=== PATIENT | female | born 1955 | race Caucasian/White ===

== ENCOUNTER 2016-05-02 20:34 | Inpatient (IN) ==
[2016-05-02] MEDS ORDERED: NITROGLYCERIN 2% OINT 1 INCH/GM PACK TOP STA (21:11)
[2016-05-02 21:19] LABS: Basophils # 0.1 10*3/uL (0.0-0.2); Basophils % 0.7 % (0.0-0.8); Eosinophils # 0.1 10*3/uL (0.0-0.87); Eosinophils % 1.7 % (0.00-10.9); Hematocrit 39.1 VOL% (35.7-47.0); Hemoglobin 12.9 GM/DL (12.0-16.0); Immature Granulocytes % 0.8 %; Immature Granulocytes Absolute 0.06 #; Lymphocytes # 2.1 10*3/uL (1.4-4.0); Lymphocytes % 28.4 % (21.3-54.2); Mean Corpuscular Hemoglobin 31 PG (27-34); Mean Corpuscular Volume 92.4 FL (87-102); Mean Platelet Volume 9.9 FL (9.6-12.0); Monocytes # 0.5 10*3/uL (0.11-0.8); Monocytes % 7.5 % (1.7-12.7); Neutrophils # 4.4 10*3/uL (1.4-7.4); Neutrophils % 60.9 % (38.7-73.9); Platelet Count 157 10*3/uL (130-400); Red Blood Count 4.23 10*6/uL (3.8-5.5); Red Cell Distribution Width 12.7 % (9.3-17.3); White Blood Count 7.2 10*3/uL (4.5-13.71)
--- NOTE | 2016-05-02 21:25 | Emergency Department Note ---
ISami Sierra, am scribing for, and in the presence of, Kit Deluca MD 21:19. Yosi Mcallister Charles R, MD, personally performed the services described in this documentation, ascribed by Tere Gallardo in my presence, and it is both accurate and complete . Arrival - Arrival Chief Complaint: Chest Pain Stated Complaint: chest pain ED Nursing Triage Note: pt arrives from [facility] for further eval r/t chest pain, pt was outside working in yard at 1400, suddenly experienced cp dull ache to her mid sternal area, she states radiated to her right shoulder and she says was sob also. she denies n/v or pain elsewhere and says she is currently pain free. 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 pt see's dr whitney as sound designer. 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 She states she was "reaching into a tub to get pictures" when chest pain hit her that radiated to left shoulder. Pt reports chest pain was sharp and same as previous [facility]. No other complaints/pain in ED. Pt has a PMHx of HTN, [place], IDDM, Dyslipidemia, and Diverticulitis. Pt also has a surgical history of cardiac cath (stents x3 in 2013.) Onset (ago): hour(s) Consistency: constant Review of System - Review of System 12 point system: reviewed and no additional remarkable complaints except as stated - Review of System Constitutional: Absent: chills, fever Cardiovascular: Present: chest pain Gastrointestinal: Absent: abdominal pain, nausea, vomiting, diarrhea Musculoskeletal: Present: arm pain (left shoulder radiated from chest pain). Absent: back pain, leg pain, neck pain Skin: Absent: rash Neurological: Absent: headache Psychiatric: Absent: anxiety Medical,Surgical,& Family Hx - Medical History Cardio: History of: Hypertension, [place] Endocrine: History of: Diabetes Mellitus (IDDM), Dyslipidemia Gastrointestinal: History of: Diverticulitis/ Diverticulosis, GI Problems ( cirrhosis) - Surgical History Cardiac Surgeries: Sugical HX of: Cardiac Surgery (stent x 3) - Social History Smoking Status: Never smoker Frequency of Alcohol Use: None Type of Drug Use: None Exam Vital Signs: Vital Signs Temperature 98.9 F 05/02/16 20:43 Pulse Rate 60 05/02/16 20:43 Respiratory Rate 18 05/02/16 20:43 Blood Pressure 156/74 05/02/16 20:43 O2 Sat by Pulse Oximetry 97 05/02/16 20:43 - General General appearance: alert, in no apparent distress - Head Head exam: Present: atraumatic, normocephalic - Eye Eye exam: Present: PERRL, EOMI - ENT ENT exam: Present: mucous membranes moist. Absent: mucous membranes dry - Neck Neck exam: Present: full ROM. Absent: tenderness - Chest Chest inspection: Present: symmetric chest wall rise. Absent: tenderness - Respiratory Respiratory exam: Present: normal lung sounds bilaterally. Absent: respiratory distress - Cardiovascular Cardiovascular exam: Present: regular rate, normal rhythm, normal heart sounds - Abdominal Exam Abdominal exam: Present: soft. Absent: tenderness - Extremities Exam Extremities exam: Present: full ROM, pedal edema (+1 to lower extremity). Absent: tenderness - Back Exam Back exam: Present: full ROM. Absent: tenderness - Neurological Exam Neurological exam: Present: alert, oriented X3, CN II-XII intact. Absent: motor sensory deficit - Psychiatric Psychiatric exam: Present: normal affect, normal mood - Skin Skin exam: Present: warm, dry Course - Consultations Consultation #1: Dr. Raman will admit for Dr. Zheng Time: 21:10 Results - Labs CBC & BMP: 05/02/16 20:42 Lab Results: I have reviewed the patients labs Labs: All labs from previous facility reviewed Disposition Clinical Impression: Chest pain Case discussed with: patient Disposition: Still a Patient Condition: Stable Time of Disposition: 21:25
[2016-05-02 21:44] LABS: Albumin 3.8 G/DL (3.4-5.0); Bilirubin,Total 0.6 MG/DL (0.2-1.0); Calcium 9.3 MG/DL (8.5-10.1); Magnesium 2.1 MG/DL (1.8-2.4); Osmolality,Calculated 295.6 MOS/KG (273-304); Total Protein 7.5 G/DL (6.4-8.3)
[2016-05-02] MEDS ORDERED: POTASSIUM CHLORIDE 20 MEQ TABLET PO PRN (22:15)
[2016-05-02] MEDS ORDERED: MAGNESIUM SULF RIDER 4 GM in PREMIX 1 EACH IV PRN (22:15)
[2016-05-02] MEDS ORDERED: MAGNESIUM SULF RIDER 2 GM in PREMIX 1 EACH IV PRN (22:15)
[2016-05-02] MEDS ORDERED: MORPHINE 2 MG/1 ML SYRINGE IV PRN (22:15)
[2016-05-02] MEDS ORDERED: ONDANSETRON 4 MG/2 ML VIAL IV PRN (22:15)
[2016-05-02] MEDS ORDERED: GLUCAGON 1 MG VIAL IM PRN (22:15)
[2016-05-02] MEDS ORDERED: DEXTROSE 50% 25 GM/50 ML VIAL IV PRN (22:15)
[2016-05-02] MEDS: SODIUM CHLORIDE 0.9% 1,000 ML IV SCH (23:21)
[2016-05-02] MEDS: ENOXAPARIN 100 MG/ML SYRINGE SUBCUT SCH (23:24)
[2016-05-03] MEDS: NITROGLYCERIN 2% OINT 1 INCH/GM PACK TOP SCH ×4 (00:03→17:09)
[2016-05-03 01:04] LABS: Basophils # 0.1 10*3/uL (0.0-0.2); Basophils % 0.9 % (0.0-0.8); Eosinophils # 0.1 10*3/uL (0.0-0.87); Eosinophils % 1.6 % (0.00-10.9); Hematocrit 35.4 VOL% (35.7-47.0); Hemoglobin 11.6 GM/DL (12.0-16.0); Immature Granulocytes % 0.7 %; Immature Granulocytes Absolute 0.04 #; Lymphocytes # 1.8 10*3/uL (1.4-4.0); Lymphocytes % 32.1 % (21.3-54.2); Mean Corpuscular HGB Conc 32.8 GM/DL (32-36); Mean Corpuscular Hemoglobin 30 PG (27-34); Mean Corpuscular Volume 92.2 FL (87-102); Monocytes # 0.5 10*3/uL (0.11-0.8); Monocytes % 8.3 % (1.7-12.7); Neutrophils # 3.1 10*3/uL (1.4-7.4); Neutrophils % 56.4 % (38.7-73.9); Platelet Count 159 10*3/uL (130-400); Red Blood Count 3.84 10*6/uL (3.8-5.5); Red Cell Distribution Width 12.6 % (9.3-17.3); White Blood Count 5.6 10*3/uL (4.5-13.71)
[2016-05-03 01:53] LABS: Albumin 3.4 G/DL (3.4-5.0); Bilirubin,Total 0.6 MG/DL (0.2-1.0); Magnesium 2.1 MG/DL (1.8-2.4); Osmolality,Calculated 297.4 MOS/KG (273-304); Potassium 4.4 MMOL/L (3.5-5.1); Total Protein 6.2 G/DL (6.4-8.3)
[2016-05-03 01:54] LABS: Risk Ratio 3.77; Thyroid Stimulating Hormone 0.796 uIU/ml (0.358-3.74); VLDL CHOLESTEROL 33.6 MG/DL
--- NOTE | 2016-05-03 06:42 | EKG Report ---
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
[2016-05-03] MEDS: INSULIN REGULAR 100 UNIT/ML SUBCUT SCH ×4 (08:45→22:03)
[2016-05-03] MEDS ORDERED: ASPIRIN EC 325 MG TABLET PO SCH (09:00)
--- NOTE | 2016-05-03 09:08 | XRay Report ---
Exam: XR chest 1V portable Indication: Shortness of breath, cardiomegaly Comparison study: 05/02/16 Findings: Cardiac silhouette is mildly enlarged, similar to prior. Mediastinal contours and osseous structures appear stable from prior. There is no focal consolidation, pneumothorax or pleural effusion identified. Calcific density adjacent to the right proximal humerus greater tuberosity likely represents calcific tendinopathy changes. Impression: No acute cardiopulmonary process. No significant change from prior. Borderline cardiomegaly. PROCEDURE INTERPRETED AT [facility] DEPARTMENT OF RADIOLOGY Final Report Signed by: Dutch Weston
[2016-05-03] MEDS: PANTOPRAZOLE 40 MG TABLET PO SCH (09:43)
--- NOTE | 2016-05-03 12:46 | Cardiology History & Physical ---
I, Jackelyn Church RN, am scribing for, and in the presence of, London Mandujano MD 12:38. Assessment and Plan - Time spent with patient Time spent with patient: Greater than 30 minutes (1) Chest pain Status: Acute Assessment and plan: Symptoms typical for angina with some atypical features. She has a history of stent placement, previously patent 2 years ago at time of last left heart catheterization. She has been on Ranexa since September 2015 and ran out of medication on Sunday. ECG shows sinus rhythm/sinus bradycardia with rates in the 50's-60's. Creatinine is up to 1.4 and troponin has risen to 0.052. Cardiac enzymes and ECG did not reveal acute ischemic event. Certainly her pain may be secondary to small vessel disease or Prinzmetal's angina that exacerbated off the Ranexa. She needs to be restarted on this. Current Visit: Yes (2) Heart murmur, systolic Status: Acute Assessment and plan: This is not previously been noted. We'll do echocardiogram to evaluate this. Current Visit: Yes (3) Dyspnea on exertion Status: Chronic Assessment and plan: Multifactorial. She is not very active and has obstructive sleep apnea, she tells me she is compliant with CPAP nightly. At time of cath April 2014, ejection fraction was 60%. I do hear a soft murmur upon exam. We will obtain an echocardiogram for further evaluation. This is a long-term chronic issue. Current Visit: Yes (4) Coronary artery disease Problem details: 08/11- mRCA overlapping 3.0 x 23mm & 3.5 x 18mm Xience Expedition stents and pLCx 3.2 x 12 mm Xience Expedition stent at [facility] Status: Chronic Assessment and plan: Prior coronary stenting with patent stents 2 years ago. Current Visit: Yes (5) Status post coronary artery stent placement Problem details: 08/11- mRCA overlapping 3.0 x 23mm & 3.5 x 18mm Xience Expedition stents and pLCx 3.2 x 12 mm Xience Expedition stent at [facility] Status: Chronic Assessment and plan: Prior stents placed over 2 years ago were patent. Current Visit: Yes (6) Hypertension Status: Chronic Assessment and plan: Currently well controlled. Will continue home medications and adjust as needed. Current Visit: Yes (7) Diabetes mellitus Status: Chronic Assessment and plan: Fairly well controlled. Will continue home diabetic medications and if needed, place on sliding scale insulin therapy. Current Visit: Yes (8) History of atrial fibrillation Status: Chronic Assessment and plan: Currently in sinus rhythm, on no antiarrhythmic or jovita blocking agent. She is on Aspirin 81 mg daily and has been anticoagulated with full dose Lovenox this hospitalization. Will monitor. This overall has not been an issue. Certainly clinically is been asymptomatic. Current Visit: Yes (9) Obstructive sleep apnea Status: Chronic Assessment and plan: On CPAP nightly with reported compliance per patient. Current Visit: Yes (10) FITCH (nonalcoholic steatohepatitis) Status: Chronic Current Visit: Yes (11) Obesity (BMI 30-39.9) Status: Chronic Assessment and plan: Needs to lose weight but she is not motivated to do such. Current Visit: Yes (12) Arthritis Status: Chronic Assessment and plan: This is a chronic issue exacerbated by obesity. Current Visit: Yes (13) Fatigue Status: Acute Assessment and plan: This a chronic issue over 2 years in duration. This is associated with addition exertion as well. Current Visit: Yes History of Present Illness Chief complaint: chest pain History of present illness: The patient personally interviewed and examined by me and chart reviewed. Ms. Velez is a 60 year old female who is routinely followed by Dr. Eric. She has a history of atrial fibrillation, bradycardia, cirrhosis - FITCH , diabetes mellitus, hypertension, obesity, obstructive sleep apnea, arthritis, and coronary artery disease status post mid right coronary artery overlapping stents and stent to the proximal left circumflex at [facility] in July of 2013. She has risk factors significant for hypertension, personal history, sedentary lifestyle, obesity. She was transferred to our emergency department last night from [facility] for further evaluation of chest pain. Yesterday, around 2:00 PM, she was bending over to pick something up when she had a sharp pain in her left breast. Once she stood up, this was accompanied by a midsternal chest pressure with radiation of discomfort to the right shoulder. She had associated symptoms of mild shortness of breath and nausea. She denies palpitations, lightheadedness, dizziness, syncope, or diaphoresis. She reports this incident lasted approximately 10 minutes. She continued to have chest discomfort and presented to the [facility] ED for evaluation. At [facility], she was given Aspirin, Lovenox, and nitroglycerin topically. She reports she finally has relief of pain this morning. She tells me that she ran out of her Ranexa on Sunday and her delivery of this medication has not arrived yet. Prior to yesterday, she denies any chest discomfort or pain at rest or on exertion. Her family tells me that she isn't able to do very much but when she does perform activities around the house, she has to take frequent rest breaks due to shortness of breath. She also reports having bilateral lower extremity leg edema on a regular basis. She had left heart catheterization 05/15/14 which revealed 40% in stent restenosis of the left circumflex and an ejection fraction of 60% with other stents widely patent. At time of cath, there was mild plaquing of the mid left anterior descending artery of 30-40% and the left main was angiographically normal. She had stress testing 05/03/15 with a clinically positive, electrically negative subtarget test. She has been in sinus rhythm per ECG and athletic agent. There is no acute changes in her ECG. Her creatinine is mildly elevated at 1.4 and her troponin has risen to 0.052 since last night. I do hear a soft murmur upon exam. We will obtain an echocardiogram to further evaluate. It is interesting that she is on Ranexa for about a year for chest pain after having an unremarkable cardiac catheterization April 2014. This raises the issue whether this may be small vessel disease. She is doing well from an angina standpoint until she ran out of her Ranexa. The other issue is that she has chronic fatigue but this is been going on for over 2 years without change. Her troponins are flat in trivially increased. Home Medications Medication Instructions Recorded Confirmed Type Aspirin [Ecotrin] 81 mg PO DAILY 05/02/16 05/02/16 History Atorvastatin [Lipitor] 40 mg PO BEDTIME 05/02/16 05/02/16 History Febuxostat [Uloric] 40 mg PO DAILY 05/02/16 05/02/16 History Indomethacin Cap [Indocin Cap] 50 mg PO TID PRN 05/02/16 05/02/16 History Insulin Glargine,Hum.rec.anlog 35 unit SUBCUT BEDTIME 05/02/16 05/02/16 History [Winston Haider] Insulin Lispro [HumaLOG] 20 unit SUBCUT BID 05/02/16 05/02/16 History Lisinopril 10 mg PO DAILY 05/02/16 05/02/16 History NIFEdipine XL TAB [Procardia Xl] 60 mg PO DAILY 05/02/16 05/02/16 History Pantoprazole Tab [Protonix Tab] 40 mg PO DAILY 05/02/16 05/02/16 History Ranolazine [Ranexa] 1,000 mg PO BID 05/02/16 05/02/16 History hydroCHLOROthiazide 50 mg PO DAILY 05/02/16 05/02/16 History [Hydrochlorothiazide] Allergies Allergy/AdvReac Type Severity Reaction Status Date / Time latex AdvReac Intermediate RASH Verified 05/02/16 22:14 12 point system: reviewed and no additional remarkable complaints except as stated - Constitutional Constitutional: Present: fatigue. Absent: anorexia, chills, daytime sleepiness , excessive sweating, fever(s), frequent falls, headache(s), increased appetite , lethargy, malaise, night sweats, stops breathing during sleep (wears CPAP at night), weakness, weight gain, weight loss - EENT Eyes: Absent: blurry vision, diplopia, loss of vision Ears: Absent: decreased hearing, ear discharge, ear pain Nose, mouth and throat: Present: nasal congestion (has had recent cold). Absent: dysphagia, epistaxis, headache(s), hoarseness, lip swelling, neck mass, neck pain, sinus pressure, sore throat, throat swelling, tongue swelling, vertigo - Cardiovascular Cardiovascular: Present: as per HPI, chest pain at rest, chest pain with activity, dyspnea on exertion, edema, radiating jaw, neck or arm pain. Absent: claudication, diaphoresis, dyspnea, lightheadedness, orthopnea, palpitations, PND - Respiratory Respiratory: Present: as per HPI, cough (has had recent cold), dyspnea on exertion. Absent: dyspnea, hemoptysis, wheezing, snoring, pain on inspiration - Gastrointestinal Gastrointestinal: Present: heartburn (occasional ). Absent: abdominal pain, bloating, change in bowel habits, coffee ground emesis, constipation, cramping, diarrhea, dysphagia, early satiety, hematemesis, hematochezia, loose stools, melena, nausea, vomiting - Genitourinary Genitourinary: Absent: difficulty urinating, dysuria, flank pain, urinary frequency, urinary hesitancy, urinary incontinence - Musculoskeletal Musculoskeletal: Absent: arthralgias, back pain, joint swelling, limited range of motion, muscle cramps, muscle weakness, myalgias - Neurological Neurological: Absent: abnormal gait, abnormal speech, behavioral changes, confusion, convulsions, disequilibrium, dizziness, focal weakness, frequent falls, headache(s), memory loss, numbness, paresthesias, radicular pain, syncope , tremor(s) - Psychiatric Psychiatric: Absent: anxiety, confusion, depression, difficulty concentrating, memory loss, panic attacks - Endocrine Endocrine: Absent: cold intolerance, fatigue, heat intolerance, polydipsia, polyphagia - Hematologic/Lymphatic Hematologic/Lymphatic: Absent: easy bleeding, easy bruising, lymphadenopathy Medical,Surgical,& Family Hx - Medical History Cardio: History of: Hypertension, [place] Endocrine: History of: Diabetes Mellitus (IDDM), Dyslipidemia Respiratory: History of: Obstructive Sleep Apnea Gastrointestinal: History of: Diverticulitis/ Diverticulosis, GI Problems ( cirrhosis) - Surgical History Cardiac Surgeries: Sugical HX of: Cardiac Surgery (stent x 3) Reproductive Surgeries: Surgical HX of;: Hysterectomy Orthopedic Surgeries: Surgical HX of;: Orthopedic Surgery (Left ankle and cartilage surgery in right knee) - Social History Smoking Status: Never smoker Frequency of Alcohol Use: None Type of Drug Use: None Cardiology Physical Exam - Constitutional Vitals: Vital Signs Temp Pulse Resp BP Pulse Ox 98.4 F 57 L 20 132/81 97 05/03/16 07:49 05/03/16 07:49 05/03/16 07:49 05/03/16 07:49 05/03/16 07:49 Intake and Output 05/02/16 05/03/16 05/03/16 22:59 06:59 14:59 Output Total 900 / 900 Balance -900 / -900 Output: Urine 900 / 900 Other: Voiding Method Toilet Weight 225 lb 12 oz 224 lb 8 oz General appearance: no acute distress, morbidly obese - Head Head exam: Present: normal inspection, normocephalic - Eye Eye exam: Absent: conjunctival injection, periorbital swelling, scleral icterus Pupils: Present: RITIKA. Absent: irregular - ENT ENT exam: Present: normal exam, normal external ear exam - Neck Neck exam: Present: normal inspection. Absent: tenderness - Respiratory Respiratory exam: Present: clear to auscultation bilaterally, decreased breath sounds. Absent: accessory muscle use, chest wall tenderness - Cardiovascular Cardiovascular exam: Present: regular rate and rhythm, systolic murmur, other ( pulses are 2+ and equal.). Absent: irregular rhythm - GI/Abdominal GI/Abdominal exam: Present: normal bowel sounds, soft. Absent: distended, mass , tenderness - Extremities Exam Extremities exam: Present: normal inspection, full ROM, edema (trace), other (2 + DP and PT pulses bilaterally). Absent: calf tenderness - Back Exam Back exam: Present: normal inspection. Absent: vertebral tenderness - Neurological Exam Neurological exam: Present: alert, oriented X3, other (grossly intact, no resting or essential tremor) - Psychiatric Psychiatric exam: Present: normal affect, normal mood - Skin Skin exam: Present: normal color, warm, dry, intact Result/EKG - Labs CBC & BMP: 05/03/16 00:34 05/03/16 00:34 Lab Results: I have reviewed the past 24 hour labs Labs: Laboratory Results - last 24 hr 05/02/16 05/03/16 05/03/16 23:54 00:34 00:34 WBC 5.6 RBC 3.84 Hgb 11.6 L Hct 35.4 L MCV 92.2 MCH 30 MCHC 32.8 RDW 12.6 Plt Count 159 MPV 10.0 Neut % (Auto) 56.4 Lymph % (Auto) 32.1 [place] % (Auto) 8.3 Eos % (Auto) 1.6 Baso % (Auto) 0.9 H Neut # (Auto) 3.1 Lymph # (Auto) 1.8 [place] # (Auto) 0.5 Eos # (Auto) 0.1 Baso # (Auto) 0.1 Immature Gran % 0.7 Nucleated RBC % 0.0 Immature Gran # 0.04 Nucleated RBCs # 0.00 Sodium Potassium Chloride Carbon Dioxide Anion Gap BUN Creatinine GFR Calculation BUN/Creatinine Ratio Glucose POC Glucose 112 H Calculated Osmolality Calcium Magnesium Total Bilirubin AST ALT Alkaline Phosphatase Troponin I 0.051 H B-Natriuretic Peptide Total Protein Albumin Globulin Albumin/Globulin Ratio Triglycerides Cholesterol LDL Cholesterol VLDL Cholesterol HDL Cholesterol Heart Disease Risk Ratio TSH 3rd Generation 05/03/16 05/03/16 05/03/16 00:34 00:34 05:02 WBC RBC Hgb Hct MCV MCH MCHC RDW Plt Count MPV Neut % (Auto) Lymph % (Auto) [place] % (Auto) Eos % (Auto) Baso % (Auto) Neut # (Auto) Lymph # (Auto) [place] # (Auto) Eos # (Auto) Baso # (Auto) Immature Gran % Nucleated RBC % Immature Gran # Nucleated RBCs # Sodium 147 H Potassium 4.4 Chloride 109 H Carbon Dioxide 27 Anion Gap 15.4 H BUN 29 H Creatinine 1.40 H GFR Calculation 48 BUN/Creatinine Ratio 20.00 Glucose 91 POC Glucose Calculated Osmolality 297.4 Calcium 9.0 Magnesium 2.1 Total Bilirubin 0.60 AST 25 ALT 27 Alkaline Phosphatase 80 Troponin I 0.052 H B-Natriuretic Peptide 31 Total Protein 6.2 L Albumin 3.4 Globulin 2.8 Albumin/Globulin Ratio 1.2 Triglycerides 168 H Cholesterol 132 LDL Cholesterol 73.0 VLDL Cholesterol 33.6 HDL Cholesterol 35 L Heart Disease Risk Ratio 3.77 TSH 3rd Generation 0.796 05/03/16 05/03/16 05:59 07:11 WBC RBC Hgb Hct MCV MCH MCHC RDW Plt Count MPV Neut % (Auto) Lymph % (Auto) [place] % (Auto) Eos % (Auto) Baso % (Auto) Neut # (Auto) Lymph # (Auto) [place] # (Auto) Eos # (Auto) Baso # (Auto) Immature Gran % Nucleated RBC % Immature Gran # Nucleated RBCs # Sodium Potassium Chloride Carbon Dioxide Anion Gap BUN Creatinine GFR Calculation BUN/Creatinine Ratio Glucose POC Glucose 101 104 Calculated Osmolality Calcium Magnesium Total Bilirubin AST ALT Alkaline Phosphatase Troponin I B-Natriuretic Peptide Total Protein Albumin Globulin Albumin/Globulin Ratio Triglycerides Cholesterol LDL Cholesterol VLDL Cholesterol HDL Cholesterol Heart Disease Risk Ratio TSH 3rd Generation - Impressions Impressions: ECG with sinus bradycardia without any acute changes. - EKG EKG results: interpreted by me, sinus rhythm (mild bradycardia with rates in the 50's) Quality Measures - Stroke Onset of Symptoms Date: 05/02/16 Onset of Symptoms Time: 14:00 IDelbert John Timothy, MD, personally performed the services described in this documentation, ascribed by Jackelyn Church RN in my presence, and it is both accurate and complete 245 .
[2016-05-03] MEDS: SODIUM CHLORIDE 0.9% 1,000 ML IV SCH (14:46)
[2016-05-03] MEDS ORDERED: INDOMETHACIN 50 MG CAPSULE PO PRN (17:22)
--- NOTE | 2016-05-03 17:55 | ECHO Report ---
Lynnette Velez Exam Date: 05/03/2016 14:12 Referring Physician: Technologist: Ashlyn Quintero RDCS Age: 60 Ht (in): Wt (lb): Gender: F Exam Location: [facility] Echo Indications: Chest pain, unspecified, Essential (primary) hypertension, Shortness of breath, Atrial fibrillation, Other fatigue, Diabetes, CAD with previous stents, JENNIFER, Cardiac murmur, unspecified BP: / HR: Rhythm: Technical Quality: IMPRESSIONS Left ventricular ejection fraction is estimated at 60 %. Grade I/IV diastolic dysfunction (abnormal relaxation filling pattern), normal to mildly elevated filling pressures. The right ventricle is normal in size and function. The right atrium is mildly enlarged. The left atrium is mildly enlarged. Thickened mitral valve. Trace mitral valve regurgitation. Aortic valve sclerosis. No aortic valve regurgitation. Moderate tricuspid valve regurgitation. PAP50 mmHG. Pulmonic valve not well visualized. Normal pericardium without effusion. Normal ascending aorta dimension. MEASUREMENTS (Male / Female) Normal Values 2D ECHO LV Diastolic Diameter PLAX 4.6 cm 4.2 - 5.9 / 3.9 - 5.3 cm LV Systolic Diameter PLAX 2.6 cm LV Fractional Shortening PLAX 43.0 % IVS Diastolic Thickness 0.9 cm 0.6 - 1.0 / 0.6 - 0.9 cm LVPW Diastolic Thickness 0.9 cm 0.6 - 1.0 / 0.6 - 0.9 cm RV Internal Dim ED PLAX 3.3 cm Aortic Root Diameter 3.4 cm LA Systolic Diameter LX 4.1 cm 3.0 - 4.0 / 2.7 - 3.8 cm DOPPLER TR Peak Velocity 300.0 cm/s TR Peak Gradient 36.0 mmHg FINDINGS Left Ventricle Left ventricular ejection fraction is estimated at 60 %.Grade I/IV diastolic dysfunction (abnormal relaxation filling pattern), normal to mildly elevated filling pressures. Right Ventricle The right ventricle is normal in size and function. Right Atrium The right atrium is mildly enlarged. Left Atrium The left atrium is mildly enlarged. Mitral Valve Thickened mitral valve. Trace mitral valve regurgitation. Aortic Valve Aortic valve sclerosis. No aortic valve regurgitation. Tricuspid Valve Morphologically normal tricuspid valve. Moderate tricuspid valve regurgitation. PAP50 mmHG. Pulmonic Valve Pulmonic valve not well visualized. Pericardium Normal pericardium without effusion. Aorta Normal ascending aorta dimension. Toño Raman (Electronically Signed) Final Date: 03 May 2016 17:54
[2016-05-03] MEDS: RANOLAZINE 500 MG TABLET PO SCH (21:01)
[2016-05-03] MEDS: ENOXAPARIN 100 MG/ML SYRINGE SUBCUT SCH (21:01)
[2016-05-03] MEDS: ATORVASTATIN 40 MG TABLET PO SCH (21:01)
[2016-05-03] MEDS: INSULIN GLARGINE 100 UNIT/ML SUBCUT SCH (21:01)
[2016-05-03] MEDS: INSULIN LISPRO 100 UNIT/ML SUBCUT SCH (22:03)
[2016-05-04] MEDS: NITROGLYCERIN 2% OINT 1 INCH/GM PACK TOP SCH ×5 (01:27→23:42)
[2016-05-04] MEDS: SODIUM CHLORIDE 0.9% 1,000 ML IV SCH ×2 (03:51→14:24)
[2016-05-04] MEDS ORDERED: PANTOPRAZOLE 40 MG TABLET PO SCH (09:00)
[2016-05-04] MEDS: INSULIN LISPRO 100 UNIT/ML SUBCUT SCH ×2 (09:27→21:12)
[2016-05-04] MEDS: hydroCHLOROthiazide 25 MG TABLET PO SCH (09:28)
[2016-05-04] MEDS: FEBUXOSTAT 80 MG TABLET PO SCH (09:28)
[2016-05-04] MEDS: ASPIRIN EC 81 MG TABLET PO SCH (09:28)
[2016-05-04] MEDS: PANTOPRAZOLE 40 MG TABLET PO SCH (09:28)
[2016-05-04] MEDS: LISINOPRIL 10 MG TABLET PO SCH (09:29)
[2016-05-04] MEDS: INSULIN REGULAR 100 UNIT/ML SUBCUT SCH ×4 (09:29→21:12)
[2016-05-04] MEDS: RANOLAZINE 500 MG TABLET PO SCH ×2 (09:29→21:11)
--- NOTE | 2016-05-04 16:58 | Cardiology Progress Note ---
Assessment and Plan (1) Chest pain Status: Acute Assessment and plan: She is had no symptoms since starting her on Ranexa. She is not though been ambulating in the hallway and not been out of bed by its moderate amount. The Rivera guide bit walking the hallways and she feels. She does well she probably discharged tomorrow but may have passed some samples to bridge her to her mail order arrives. Current Visit: Yes (2) Heart murmur, systolic Status: Acute Assessment and plan: This is not previously been noted. Echo revealed thickened mitral valve is trace regurgitation and sclerotic aortic valve but functionally otherwise normal. There is moderate tricuspid regurgitation. This may be the source of murmur. Current Visit: Yes (3) Dyspnea on exertion Status: Chronic Assessment and plan: Multifactorial. It is certainly chronic. Nothing on echocardiogram really significant enough to indicated etiology of this. Current Visit: Yes (4) Coronary artery disease Problem details: 08/11- mRCA overlapping 3.0 x 23mm & 3.5 x 18mm Xience Expedition stents and pLCx 3.2 x 12 mm Xience Expedition stent at [facility] Status: Chronic Assessment and plan: Prior coronary stenting with patent stents 2 years ago. Current Visit: Yes (5) Status post coronary artery stent placement Problem details: 08/11- mRCA overlapping 3.0 x 23mm & 3.5 x 18mm Xience Expedition stents and pLCx 3.2 x 12 mm Xience Expedition stent at [facility] Status: Chronic Assessment and plan: Prior stents placed over 2 years ago were patent. Current Visit: Yes (6) Hypertension Status: Chronic Assessment and plan: Currently well controlled. Will continue home medications and adjust as needed. Blood pressure been up and down. Current Visit: Yes (7) Diabetes mellitus Status: Chronic Assessment and plan: Fairly well controlled. Will continue home diabetic medications and if needed, place on sliding scale insulin therapy. Current Visit: Yes (8) History of atrial fibrillation Status: Chronic Assessment and plan: Currently in sinus rhythm, on no antiarrhythmic or jovita blocking agent. Current Visit: Yes (9) Obstructive sleep apnea Status: Chronic Assessment and plan: On CPAP nightly with reported compliance per patient. Current Visit: Yes (10) FITCH (nonalcoholic steatohepatitis) Status: Chronic Current Visit: Yes (11) Obesity (BMI 30-39.9) Status: Chronic Assessment and plan: Needs to lose weight but she is not motivated to do such. Current Visit: Yes (12) Arthritis Status: Chronic Assessment and plan: This is a chronic issue exacerbated by obesity. Current Visit: Yes (13) Fatigue Status: Acute Assessment and plan: This a chronic issue over 2 years in duration. This is associated with addition exertion as well. Current Visit: Yes Cardiology - PN: Subj Interval history: Ms. Velez's accident pretty well now she is on the Ranexa. She's not having any specific complaints today. She's been up in the room but not been walking the mc. She denies any dyspnea or dyspnea on exertion of the shortness of breath. She has no new complaints today. We discussed the issue with her Ranexa and she may had to be discharged with some samples to bridge until her mail order Ranexa comes back. Her echocardiogram revealed ejection fraction 60%. Mild diastolic dysfunction. Mild to moderately elevated right-sided pressures. Moderate tricuspid regurgitation. Exam (Progress Note) - Constitutional Vitals: Period Temp Pulse Resp BP Sys/Thacker Pulse Ox Last 24 Hr 96.9 F-99.3 F 46-53 18-20 101-183/58-77 93-98 Exam: General appearance: Obese, no acute distress HEENT exam: normal inspection, atraumatic Neck exam: normal inspection no JVD. No carotid bruit. Trachea is in midline Respiratory/lungs exam: clear to auscultation bilaterally good air movement. Cardiovascular exam: regular rate and rhythm, 1 to 2/6 systolic murmur but no gallop or rub. No precordial lift. Chest wall exam: nontender GI/Abdominal exam: normal bowel sounds, soft, nontender, no abdominal bruits or pulsatile masses. Extremeties/musculoskeletal: normal inspection without edema or cyanosis. Neurological exam: alert, oriented X3, no focal deficits Psychiatric exam: normal affect, normal mood. Cognitive function is grossly normal. Skin exam: normal color, warm Result/EKG - Labs CBC & BMP: 05/03/16 00:34 05/03/16 00:34 Labs: Laboratory Results - last 24 hr 05/03/16 05/04/16 05/04/16 21:00 07:02 11:27 POC Glucose 153 H 99 155 H 05/04/16 15:50 POC Glucose 122 H - Impressions Impressions: Telemetry was sinus rhythm. No dysrhythmias noted. Quality Measures - Stroke Onset of Symptoms Date: 05/02/16 Onset of Symptoms Time: 14:00 Specialty Discharge - Follow Up or Referrals - Discharge Medications No Action Febuxostat [Uloric] 40 mg PO DAILY Insulin Glargine,Hum.rec.anlog [Winston Haider] 35 unit SUBCUT BEDTIME Lisinopril 10 mg PO DAILY Pantoprazole Tab [Protonix Tab] 40 mg PO DAILY Atorvastatin [Lipitor] 40 mg PO BEDTIME hydroCHLOROthiazide [Hydrochlorothiazide] 50 mg PO DAILY Ranolazine [Ranexa] 1,000 mg PO BID Aspirin [Ecotrin] 81 mg PO DAILY Indomethacin Cap [Indocin Cap] 50 mg PO TID PRN PRN Reason: Pain NIFEdipine XL TAB [Procardia Xl] 60 mg PO DAILY Insulin Lispro [HumaLOG] 20 unit SUBCUT BID
[2016-05-04] MEDS: ATORVASTATIN 40 MG TABLET PO SCH (21:11)
[2016-05-04] MEDS: INSULIN GLARGINE 100 UNIT/ML SUBCUT SCH (21:12)
[2016-05-04] MEDS: ENOXAPARIN 100 MG/ML SYRINGE SUBCUT SCH (21:12)
[2016-05-05] MEDS: SODIUM CHLORIDE 0.9% 1,000 ML IV SCH (04:04)
[2016-05-05] MEDS: NITROGLYCERIN 2% OINT 1 INCH/GM PACK TOP SCH ×2 (05:47→12:07)
[2016-05-05] MEDS ORDERED: INSULIN LISPRO 100 UNIT/ML SUBCUT SCH (08:00)
[2016-05-05] MEDS: INSULIN REGULAR 100 UNIT/ML SUBCUT SCH ×2 (08:52→12:06)
[2016-05-05] MEDS: PANTOPRAZOLE 40 MG TABLET PO SCH (09:18)
[2016-05-05] MEDS: FEBUXOSTAT 80 MG TABLET PO SCH (09:18)
[2016-05-05] MEDS: ASPIRIN EC 81 MG TABLET PO SCH (09:19)
[2016-05-05] MEDS: LISINOPRIL 10 MG TABLET PO SCH (09:19)
[2016-05-05] MEDS: RANOLAZINE 500 MG TABLET PO SCH (09:19)
[2016-05-05] MEDS: hydroCHLOROthiazide 25 MG TABLET PO SCH (09:19)
--- NOTE | 2016-05-05 11:40 | Discharge Summary ---
Hospital Course - Hospital Course Hospital Course: Patient moved to the emergency room with chest pain. She has no history coronary disease having stents placed previously. She has had catheterization because of recurrent chest pain April 2014 and that time stents were patent. She had a cardiac perfusion study One year ago because of continued chest pain was unremarkable. The patient was treated with Ranexa and with this she has done well. Unfortunately she ran out of this recently in her medications have not come in. She was admitted because of recurrent chest pains. Her cardiac enzymes did not reveal any significant evidence of ischemia. After restarting her Ranexa her pain is resolved.. The patient does not receive her Ranexa via the order yet. He did discharge her and send in a prescription to [facility] in [place]. She will keep her follow-up with Dr. Zheng will need to set this up for an earlier date. Diagnosis - Discharge Diagnosis (1) Chest pain Status: Acute (2) Heart murmur, systolic Status: Acute (3) Dyspnea on exertion Status: Chronic (4) Coronary artery disease Status: Chronic (5) Status post coronary artery stent placement Status: Chronic (6) Hypertension Status: Chronic (7) Diabetes mellitus Status: Chronic (8) History of atrial fibrillation Status: Chronic (9) Obstructive sleep apnea Status: Chronic (10) FITCH (nonalcoholic steatohepatitis) Status: Chronic (11) Obesity (BMI 30-39.9) Status: Chronic (12) Arthritis Status: Chronic (13) Fatigue Status: Acute Specialty Discharge - Follow Up or Referrals - Discharge Medications No Action Febuxostat [Uloric] 40 mg PO DAILY Insulin Glargine,Hum.rec.anlog [Winston Haider] 35 unit SUBCUT BEDTIME Lisinopril 10 mg PO DAILY Pantoprazole Tab [Protonix Tab] 40 mg PO DAILY Atorvastatin [Lipitor] 40 mg PO BEDTIME hydroCHLOROthiazide [Hydrochlorothiazide] 50 mg PO DAILY Ranolazine [Ranexa] 1,000 mg PO BID Aspirin [Ecotrin] 81 mg PO DAILY Indomethacin Cap [Indocin Cap] 50 mg PO TID PRN PRN Reason: Pain NIFEdipine XL TAB [Procardia Xl] 60 mg PO DAILY Insulin Lispro [HumaLOG] 20 unit SUBCUT BID Discharge Plan - Discharge Data Disposition: Disch To Home/Self Care Condition at Discharge: Stable Discharge Diet: heart healthy Activity: resume usual activities as tolerated Hygiene: no restrictions Weight Bearing at Discharge: full weight bearing Driving: no restrictions Contact your physician if you experience:: Shortness of breath, pain uncontrolled by pain medications - Discharge Medications Continue Febuxostat [Uloric] 40 mg PO DAILY Insulin Glargine,Hum.rec.anlog [Toukyleo SoloStar] 35 unit SUBCUT BEDTIME Lisinopril 10 mg PO DAILY Pantoprazole Tab [Protonix Tab] 40 mg PO DAILY Atorvastatin [Lipitor] 40 mg PO BEDTIME hydroCHLOROthiazide [Hydrochlorothiazide] 50 mg PO DAILY Aspirin [Ecotrin] 81 mg PO DAILY Indomethacin Cap [Indocin Cap] 50 mg PO TID PRN PRN Reason: Pain NIFEdipine XL TAB [Procardia Xl] 60 mg PO DAILY Insulin Lispro [HumaLOG] 20 unit SUBCUT BID Ranolazine [Ranexa] 1,000 mg PO BID #6 tab.er.12h - Follow Up or Referral Follow Up: Courtney Eric DO [Primary Care Provider] - 2 Weeks (2 Weeks with ECG) - Forms/Instructions Exam - Constitutional Vitals: Period Temp Pulse Resp BP Sys/Thacker Pulse Ox Last 24 Hr 96.9 F-99.0 F 46-69 18-20 113-170/49-74 93-98 Exam: General appearance: Obese, no acute distress HEENT exam: normal inspection, atraumatic Neck exam: normal inspection no JVD. No carotid bruit. Trachea is in midline Respiratory/lungs exam: clear to auscultation bilaterally good air movement. Cardiovascular exam: regular rate and rhythm, 1 to 2/6 systolic murmur but no gallop or rub. No precordial lift. Chest wall exam: nontender GI/Abdominal exam: normal bowel sounds, soft, nontender, no abdominal bruits or pulsatile masses. Extremeties/musculoskeletal: normal inspection without edema or cyanosis. Neurological exam: alert, oriented X3, no focal deficits Psychiatric exam: normal affect, normal mood. Cognitive function is grossly normal. Skin exam: normal color, warm Discharge Results Labs on day of discharge: Labs from last 24 hours 05/05/16 05/04/16 05/04/16 08:04 20:00 15:50 POC Glucose 100 224 H 122 H 05/04/16 11:27 POC Glucose 155 H - Impressions Telemetry reveals sinus rhythm and stable. DS: Provider Date of admission: 05/02/16 21:19 Primary care physician: Courtney Eric DO Attending physician on admission: Courtney Eric DO Consults: 05/02/16 23:11 Consult to Pharmacy [CONS] Routine Reason for Pharmacy Consult: Adjust Meds Renal Funct Discharging clinician: Romain Meehan Expected date of discharge: 05/05/16
[2016-05-05 12:23] VITALS: BP 143/68
== END 2016-05-05 12:28 | disposition home or self-care (01) | DRG 303 ==
LOC: EDBD → EDUNIT# → N.ED 20:34 → N.EDINP 21:35 → N.TELEN 21:46
PROVIDERS: ADMIT Internal Medicine Cardiovascular Disease; ATTEND Internal Medicine Cardiovascular Disease

== ENCOUNTER 2016-10-19 09:56 | Inpatient (IN) ==
[2016-10-19] MEDS ORDERED: DEXTROSE 50% 25 GM/50 ML VIAL IV PRN (10:50)
[2016-10-19] MEDS ORDERED: GLUCAGON 1 MG VIAL IM PRN (10:50)
[2016-10-19] MEDS ORDERED: ZALEPLON 5 MG CAPSULE PO PRN (10:50)
[2016-10-19] MEDS ORDERED: ONDANSETRON 4 MG/2 ML VIAL IV PRN (10:50)
[2016-10-19] MEDS ORDERED: diphenhydrAMINE CAP 25 MG CAPSULE PO PRN (10:50)
[2016-10-19] MEDS ORDERED: hydrALAZINE 20 MG/1 ML VIAL IV PRN (10:58)
--- NOTE | 2016-10-19 11:04 | Cardiology History & Physical ---
Assessment and Plan - Time spent with patient Time spent with patient: Greater than 30 minutes (Examination, chart review discussion with consulting physician) (1) Acute on chronic renal insufficiency Status: Acute Current Visit: Yes (2) Arthritis Status: Chronic Current Visit: No (3) Coronary artery disease Problem details: 08/11- mRCA overlapping 3.0 x 23mm & 3.5 x 18mm Xience Expedition stents and pLCx 3.2 x 12 mm Xience Expedition stent at [facility] Status: Chronic Current Visit: No (4) Diabetes mellitus Status: Chronic Current Visit: No (5) Dyspnea on exertion Status: Chronic Current Visit: No (6) History of atrial fibrillation Status: Chronic Current Visit: No (7) Hypertension Status: Chronic Current Visit: No (8) FITCH (nonalcoholic steatohepatitis) Status: Chronic Current Visit: No (9) Obesity (BMI 30-39.9) Status: Chronic Current Visit: No (10) Obstructive sleep apnea Status: Chronic Current Visit: No (11) Status post coronary artery stent placement Problem details: 08/11- mRCA overlapping 3.0 x 23mm & 3.5 x 18mm Xience Expedition stents and pLCx 3.2 x 12 mm Xience Expedition stent at [facility] Status: Chronic Current Visit: No History of Present Illness Chief complaint: Shortness of breath History of present illness: Ms. Velez is a 61 year old female with known history of coronary artery disease diabetes dyslipidemia hypertension who presented to the [facility] emergency room this morning with a rather acute onset of orthopnea and dyspnea on exertion that she is noted in the last 36 hours. She states she had to sleep in the recliner last night she could not sleep on her left side because of dyspnea. She was evaluated there by Dr. Tramaine Messer was found to have a creatinine exceeding 3 her baseline is about 1.4. I do not have the records from [facility] but they have been requested. The patient states that last week she had dark colored malodorous dysuria and saw Lyssa Mina and was given a prescription for Bactrim DS 1 p.o. twice daily she does not know how long intention was to treat but she still taking it. Her medications at home include other renal offensive agents including lisinopril Indocin and hydrochlorothiazide. The patient was transferred here from [facility] for acute renal failure and dyspnea. She has a history of known coronary artery disease and chronic chest pain and chronic dyspnea. She has had chest pain that seems noncardiac. She is obese and largely sedentary. Home Medications Medication Instructions Recorded Confirmed Type Aspirin [Ecotrin] 81 mg PO DAILY 05/02/16 05/02/16 History Atorvastatin [Lipitor] 40 mg PO BEDTIME 05/02/16 05/02/16 History Febuxostat [Uloric] 40 mg PO DAILY 05/02/16 05/02/16 History Indomethacin Cap [Indocin Cap] 50 mg PO TID PRN 05/02/16 05/02/16 History Insulin Glargine,Hum.rec.anlog 35 unit SUBCUT BEDTIME 05/02/16 05/02/16 History [Toujeo SoloStar] Insulin Lispro [HumaLOG] 20 unit SUBCUT BID 05/02/16 05/02/16 History Lisinopril 10 mg PO DAILY 05/02/16 05/02/16 History NIFEdipine XL TAB [Procardia Xl] 60 mg PO DAILY 05/02/16 05/02/16 History Pantoprazole Tab [Protonix Tab] 40 mg PO DAILY 05/02/16 05/02/16 History hydroCHLOROthiazide 50 mg PO DAILY 05/02/16 05/02/16 History [Hydrochlorothiazide] Ranolazine [Ranexa] 1,000 mg PO BID #6 tab.er.12h 05/05/16 Rx Allergies Allergy/AdvReac Type Severity Reaction Status Date / Time latex AdvReac Intermediate RASH Verified 05/02/16 22:14 - Constitutional Constitutional: Present: fatigue, headache(s), lethargy, weight gain. Absent: anorexia, chills, fever(s), increased appetite - EENT Eyes: Absent: blurry vision, diplopia Ears: Absent: decreased hearing, ear discharge Nose, mouth and throat: Present: headache(s). Absent: epistaxis, nasal congestion, throat swelling - Cardiovascular Cardiovascular: Present: chest pain at rest, chest pain with activity, dyspnea, dyspnea on exertion, edema, orthopnea. Absent: palpitations, PND - Respiratory Respiratory: Present: dyspnea, dyspnea on exertion - Gastrointestinal Gastrointestinal: Absent: abdominal pain, change in bowel habits, constipation, cramping, diarrhea, dyspepsia, early satiety, heartburn - Genitourinary Genitourinary: Absent: abnormal vaginal bleeding, flank pain, hematuria, menorrhagia - Musculoskeletal Musculoskeletal: Absent: arthralgias, joint swelling - Neurological Neurological: Present: dizziness, headache(s). Absent: abnormal gait, focal weakness, numbness - Psychiatric Psychiatric: Absent: anxiety, depression - Endocrine Endocrine: Absent: cold intolerance, heat intolerance - Hematologic/Lymphatic Hematologic/Lymphatic: Absent: easy bleeding, easy bruising Medical,Surgical,& Family Hx - Medical History Cardio: History of: Cardiac Dysrhythmia (Paroxysmal atrial fibrillation 1), CAD , Hypertension Psychological: History of: Depression Endocrine: History of: Diabetes Mellitus (NIDDM) Respiratory: History of: Obstructive Sleep Apnea Gastrointestinal: History of: GI Problems (FITCH) - Surgical History Cardiac Surgeries: Sugical HX of: Cardiac Catheterization Reproductive Surgeries: Surgical HX of;: Hysterectomy Orthopedic Surgeries: Surgical HX of;: Orthopedic Surgery (Left ankle and cartilage surgery in right knee) - Social History Smoking Status: Never smoker Frequency of Alcohol Use: None Type of Drug Use: None Marital Status: Lives With:: Spouse Functional capacity: independent ambulation Cardiology Physical Exam - Constitutional General appearance: morbidly obese - Head Head exam: Present: normal inspection - Eye Eye exam: Present: EOMI Pupils: Present: RITIKA - ENT ENT exam: Present: normal exam - Neck Neck exam: Present: normal inspection - Respiratory Respiratory exam: Present: clear to auscultation bilaterally (I do not hear rales) - Cardiovascular Cardiovascular exam: Present: regular rate and rhythm (2/6 murmur of aortic sclerosis) - GI/Abdominal GI/Abdominal exam: Present: normal bowel sounds - Extremities Exam Extremities exam: Present: normal inspection (She has trivial edema) - Back Exam Back exam: Present: normal inspection - Neurological Exam Neurological exam: Present: alert, oriented X3 - Psychiatric Psychiatric exam: Present: normal affect, normal mood - Skin Skin exam: Present: normal color, erythema
[2016-10-19 11:29] LABS: Basophils % 0.5 % (0.0-0.8); Eosinophils % 0.5 % (0.00-10.9); Hematocrit 32.9 VOL% (35.7-47.0); Hemoglobin 11.2 GM/DL (12.0-16.0); Immature Granulocytes % 0.6 %; Immature Granulocytes Absolute 0.05 #; Lymphocytes # 1.3 10*3/uL (1.4-4.0); Lymphocytes % 15.5 % (21.3-54.2); Mean Corpuscular Hemoglobin 32 PG (27-34); Mean Corpuscular Volume 92.4 FL (87-102); Mean Platelet Volume 11.1 FL (9.6-12.0); Monocytes # 0.6 10*3/uL (0.11-0.8); Monocytes % 7.4 % (1.7-12.7); Neutrophils # 6.5 10*3/uL (1.4-7.4); Neutrophils % 75.5 % (38.7-73.9); Platelet Count 115 T/CUMM (130-400); Red Blood Count 3.56 MC/CUMM (3.8-5.5); Red Cell Distribution Width 13.5 % (9.3-17.3); White Blood Count 8.5 T/CUMM (4-12)
[2016-10-19 11:57] LABS: Calcium 8.6 MG/DL (8.5-10.1); Osmolality,Calculated 288.7 MOS/KG (273-304); Potassium 4.9 MMOL/L (3.5-5.1)
--- NOTE | 2016-10-19 12:53 | EKG Report ---
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
[2016-10-19] MEDS: ASPIRIN EC 81 MG TABLET PO SCH (13:00)
[2016-10-19] MEDS: INSULIN REGULAR 100 UNIT/ML SUBCUT SCH ×3 (13:01→21:31)
[2016-10-19] MEDS: ENOXAPARIN 30 MG/0.3 ML SYRINGE SUBCUT SCH (13:03)
[2016-10-19] MEDS: SODIUM CHLORIDE 0.9% 1,000 ML IV SCH (13:11)
--- NOTE | 2016-10-19 14:14 | Nephrology Consult Note ---
History of Present Illness Chief complaint: Acute Renal Failure History of present illness: Ms. Velez is a 61 year old female whom we are asked to see with acute renal failure. Baseline creatinine is approximately 1-1/2 back in April but now presents with a creatinine of 2. after receiving Bactrim last week for UTI. She also takes Indocin on a daily basis and lisinopril. She presented to the emergency room today because she was complaining of shortness of breath and dyspnea on exertion which began last night. She says it did not resolve until she began receiving oxygen today in the [facility] emergency room. Past history significant for coronary artery disease status post stenting. On exam she is in no distress her chest is clear heart rhythm is regular and she has no peripheral edema. Peripheral pulses are excellent. Impression acute renal impairment which is likely multifactorial. There may be some contribution from Bactrim elevating her creatinine, a component of volume depletion, the effect of NSAIDs, and the effect of bakari inhibitor. Plan: We will hold her Bactrim, lisinopril, Indocin. She is receiving IV fluids and I expect her to improve back to her baseline. Home Medications Medication Instructions Recorded Confirmed Type Aspirin [Ecotrin] 81 mg PO DAILY 05/02/16 10/19/16 History Atorvastatin [Lipitor] 40 mg PO BEDTIME 05/02/16 10/19/16 History Febuxostat [Uloric] 40 mg PO DAILY 05/02/16 10/19/16 History Indomethacin Cap [Indocin Cap] 50 mg PO TID PRN 05/02/16 10/19/16 History Insulin Glargine,Hum.rec.anlog 35 unit SUBCUT BEDTIME 05/02/16 10/19/16 History [Toujeo SoloStar] Insulin Lispro [HumaLOG] 20 unit SUBCUT BID 05/02/16 10/19/16 History Lisinopril 10 mg PO DAILY 05/02/16 10/19/16 History NIFEdipine XL TAB [Procardia Xl] 60 mg PO DAILY 05/02/16 10/19/16 History Pantoprazole Tab [Protonix Tab] 40 mg PO DAILY 05/02/16 10/19/16 History hydroCHLOROthiazide 25 mg PO DAILY 05/02/16 10/19/16 History [Hydrochlorothiazide] Ranolazine [Ranexa] 1,000 mg PO BID #6 tab.er.12h 05/05/16 10/19/16 Rx Cranberry Conc/C/Bacill Coag [Azo 1 tablet PO DAILY 10/19/16 10/19/16 History Cranberry Tablet] Loratadine [Allergy Relief] 10 mg PO DAILY 10/19/16 10/19/16 History Allergies Allergy/AdvReac Type Severity Reaction Status Date / Time latex AdvReac Intermediate RASH Verified 05/02/16 22:14 Medical,Surgical,& Family Hx - Medical History Cardio: History of: Cardiac Dysrhythmia (Paroxysmal atrial fibrillation 1), CAD , Hypertension Psychological: History of: Depression Endocrine: History of: Diabetes Mellitus (NIDDM) Respiratory: History of: Obstructive Sleep Apnea Gastrointestinal: History of: GI Problems (FITCH) - Surgical History Cardiac Surgeries: Sugical HX of: Cardiac Catheterization Reproductive Surgeries: Surgical HX of;: Hysterectomy Orthopedic Surgeries: Surgical HX of;: Orthopedic Surgery (Left ankle and cartilage surgery in right knee) - Family History Family History: Reports;: Family Hypertension - Social History Smoking Status: Never smoker Frequency of Alcohol Use: None Type of Drug Use: None Review of Systems 12 point system: reviewed and no additional remarkable complaints except as stated Exam - Vital Signs Vital signs: Period Temp Pulse Resp BP Sys/Thacker Pulse Ox Last 24 Hr 97.7 F-97.7 F 59-59 18-18 137-137/40-40 93-93 - General Appearance General appearance: well-developed, well-nourished, appears started age EENT: ATNC Neck: no JVD, no thyromegaly, no carotid bruit, supple Respiratory: no kyphosis, no scoliosis Cardiology: no murmurs, no rub, no gallops, no edema, regular rate, regular rhythm, normal S1, normal S2 Gastrointestinal: normoactive bowel sounds Integumentary: no rash, warm and dry Neurologic: no focal deficit, no asterixis, alert and oriented x3, reflexes 2+ and symmetric, gait normal, strength 5/5 Musculoskeletal: no deformities, no erythema, no cyanosis, no clubbing Psychiatric: mood/affect appropriate, cooperative Results - Labs CBC & BMP: 10/19/16 11:19 10/19/16 11:19 Assessment and Plan (1) Acute on chronic renal insufficiency Status: Acute Assessment and plan: multifactoral acute worsening of renal function Current Visit: Yes (2) Dyspnea on exertion Status: Chronic Current Visit: No (3) Diabetes mellitus Status: Chronic Current Visit: No Specialty Discharge - Follow Up or Referrals - Speciality Discharge Instructions Nephrology Instructions: Hold BAKARI inhib, Nsaid, and Bactrim
--- NOTE | 2016-10-19 14:26 | XRay Report ---
Exam: XR chest 2V Indication: Shortness of breath Comparison study: 05/03/2016 Findings: Cardiac silhouette is mildly enlarged, similar to prior. Mediastinal contours appear within normal limits and essentially unchanged. There are minimal posterior basilar opacities in the sulci which may represent atelectasis. There is no pneumothorax.. Cholecystectomy clips are noted. Impression: Cardiomegaly with minimal posterior basilar opacities which may represent atelectasis although infectious/inflammatory infiltrates cannot be entirely excluded. Otherwise no significant change. PROCEDURE INTERPRETED AT [facility] DEPARTMENT OF RADIOLOGY Final Report Signed by: Dutch Weston
--- NOTE | 2016-10-19 14:27 | Ultrasound Report ---
US renal Bilateral Indication: Acute renal failure. Comparison: None available. Technique: Multiple longitudinal and transverse real-time sonographic images of the kidneys were obtained. Findings: The right kidney measures 10.6 x 4.1 x 4.8 cm, and the left kidney measures 10.9 x 5.2 x 4.6 cm. There is no evidence of nephrolithiasis or abnormal perinephric fluid collections. Renal cortical echogenicity and thickness are within normal limits. There is no hydronephrosis. There is no evidence of surrounding ascites. Ultrasound images were captured and stored. IMPRESSION: Unremarkable renal ultrasound. PROCEDURE INTERPRETED AT [facility] DEPARTMENT OF RADIOLOGY Final Report Signed by: Dutch Weston
[2016-10-19] MEDS: ACETAMINOPHEN 325 MG TABLET PO PRN (17:41)
[2016-10-19 18:11] LABS: Apearance,Urine CLEAR (Clear); Bilirubin,Urine Negative (Negative); Blood, Urine Negative (Negative); Glucose,Urine (UA) Negative (Negative); Ketones,Urine Negative (Negative); Nitrite,Urine Negative (Negative); Protein,Urine Negative; RBC,Urine <1 /HPF (0-4); Squamous Epithelial Cell,Urine Occasional /HPF (0-10); Urine Color Yellow (Yellow); Urine Specific Gravity 1.009 (1.001-1.035); Urine Urobilinogen < 2.0 EU/DL (0.2-1.0); WBC,Urine 1 /HPF (0-6)
[2016-10-19] MEDS: ATORVASTATIN 40 MG TABLET PO SCH (21:32)
[2016-10-19] MEDS: DOCUSATE SODIUM 100 MG CAPSULE PO SCH (21:32)
[2016-10-19] MEDS: INSULIN GLARGINE 100 UNIT/ML SUBCUT SCH (21:37)
[2016-10-20] MEDS: SODIUM CHLORIDE 0.9% 1,000 ML IV SCH ×3 (00:20→20:56)
[2016-10-20 05:27] LABS: Basophils % 0.4 % (0.0-0.8); Eosinophils % 0.3 % (0.00-10.9); Hematocrit 32.9 VOL% (35.7-47.0); Hemoglobin 10.9 GM/DL (12.0-16.0); Immature Granulocytes % 0.8 %; Immature Granulocytes Absolute 0.06 #; Lymphocytes # 1.6 10*3/uL (1.4-4.0); Lymphocytes % 21.1 % (21.3-54.2); Mean Corpuscular HGB Conc 33.1 GM/DL (32-36); Mean Corpuscular Hemoglobin 31 PG (27-34); Mean Corpuscular Volume 93.7 FL (87-102); Mean Platelet Volume 10.9 FL (9.6-12.0); Monocytes # 0.5 10*3/uL (0.11-0.8); Monocytes % 6.9 % (1.7-12.7); Neutrophils # 5.4 10*3/uL (1.4-7.4); Neutrophils % 70.5 % (38.7-73.9); Platelet Count 117 T/CUMM (130-400); Red Blood Count 3.51 MC/CUMM (3.8-5.5); Red Cell Distribution Width 13.7 % (9.3-17.3); White Blood Count 7.7 T/CUMM (4-12)
[2016-10-20 06:03] LABS: Magnesium 2.3 MG/DL (1.8-2.4); Osmolality,Calculated 286.5 MOS/KG (273-304); Potassium 4.7 MMOL/L (3.5-5.1)
[2016-10-20 06:05] LABS: Magnesium 2.3 MG/DL (1.8-2.4); Osmolality,Calculated 286.5 MOS/KG (273-304); Potassium 4.9 MMOL/L (3.5-5.1); Risk Ratio 2.45; VLDL CHOLESTEROL 14.6 MG/DL
--- NOTE | 2016-10-20 07:22 | EKG Report ---
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
[2016-10-20] MEDS: DOCUSATE SODIUM 100 MG CAPSULE PO SCH ×2 (09:05→20:16)
[2016-10-20] MEDS: PANTOPRAZOLE 40 MG TABLET PO SCH ×2 (09:05→09:06)
[2016-10-20] MEDS: ASPIRIN EC 81 MG TABLET PO SCH (09:05)
[2016-10-20] MEDS: INSULIN REGULAR 100 UNIT/ML SUBCUT SCH ×4 (09:05→20:15)
--- NOTE | 2016-10-20 10:10 | Nephrology Progress Note ---
Nephrology - PN: Subj Interval history: Ms. Hernandez is seen in follow-up of her acute superimposed on chronic renal impairment. Creatinine is down only slightly to 2.8 from 2.9. Her blood pressure is well controlled she still mildly short of breath but has good oxygen saturation on supplemental oxygen. Her chest is clear she has no significant edema. Pulmonary emboli seems unlikely as she has not been particularly sedentary of late. We discussed her course with Dr. Zheng. I think for now we will continue to hold her BAKARI inhibitor and nonsteroidal and follow her clinical course. I expect her creatinine to slowly fall to baseline. Baseline creatinine was 1.5 in April Exam (PN)-Nephrology - Vital Signs Vital signs: Period Temp Pulse Resp BP Sys/Thacker Pulse Ox Last 24 Hr 97.7 F-99.9 F 55-64 16-22 122-148/40-67 3-95 - Lab 10/20/16 04:54 10/20/16 04:54 Most recent lab results Calcium 9.0 MG/DL (8.5-10.1) 10/20/16 04:54 Magnesium 2.3 MG/DL (1.8-2.4) 10/20/16 04:54 Assessment and Plan (1) Acute on chronic renal insufficiency Status: Acute Assessment and plan: multifactoral acute worsening of renal function Current Visit: Yes (2) Dyspnea on exertion Status: Acute Current Visit: Yes (3) Diabetes mellitus Status: Chronic Current Visit: Yes
--- NOTE | 2016-10-20 12:41 | Cardiology Progress Note ---
Kranthi Mcallister April RN, am scribing for, and in the presence of, Courtney Eric, 12 :41. Assessment and Plan (1) Acute on chronic renal insufficiency Status: Acute Current Visit: Yes (2) Arthritis Status: Chronic Current Visit: No (3) Coronary artery disease Problem details: 08/11- mRCA overlapping 3.0 x 23mm & 3.5 x 18mm Xience Expedition stents and pLCx 3.2 x 12 mm Xience Expedition stent at [facility] Status: Chronic Current Visit: No (4) Diabetes mellitus Status: Chronic Current Visit: Yes (5) Dyspnea on exertion Status: Acute Current Visit: Yes (6) History of atrial fibrillation Status: Chronic Current Visit: No (7) Hypertension Status: Chronic Current Visit: Yes (8) Obstructive sleep apnea Status: Chronic Current Visit: Yes (9) Status post coronary artery stent placement Problem details: 08/11- mRCA overlapping 3.0 x 23mm & 3.5 x 18mm Xience Expedition stents and pLCx 3.2 x 12 mm Xience Expedition stent at [facility] Status: Chronic Current Visit: No Cardiology - PN: Subj Interval history: Specialty Person: Dr. Eric SUMMARY: Ms. Velez is a 61-year-old female with known history of CAD, diabetes, dyslipidemia, and hypertension. She presented to the [facility] emergency department on the morning of 10/19/2016 with complaints of orthopnea and dyspnea on exertion 1 day. She was found to have a creatinine greater than 3 at [facility], it was 2.9 on arrival at our facility. Last week she began having dark colored malodorous dysuria and was given a prescription for Bactrim that she is still taking. Her home medications also include lisinopril, Indocin , and hydrochlorothiazide. She was transferred here to our service for acute renal failure and dyspnea. Her lisinopril, Indocin, and hydrochlorothiazide have been stopped and Dr. Edenilson Boykin has seen her in consultation. 10/20/2016: Today she is resting in bed in no acute distress. Oxygen is in use via nasal cannula, she continues to be short of breath but states it has improved. She denies any chest pain. Her creatinine is down slightly to 2.8. She had a low-grade temp of 99.9 temporally during the night, but her white count is within normal range. Troponins have been flat. Pressures have been stable, this morning 131/66. 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 Renal ultrasound done yesterday was unremarkable. I saw with Ms. Crisostomo is acting as a scribe for me today. Also discussed with Dr. Boykin. I discussed with the patient's and the patient. Her creatinine is coming down nicely and all her studies are unremarkable. Hopefully the velocity of decline in her creatinine will be more brisk. We will continue IV hydration for now she states she feels much better. Exam (Progress Note) - Constitutional Vitals: Period Temp Pulse Resp BP Sys/Thacker Pulse Ox Last 24 Hr 97.7 F-99.9 F 55-64 16-22 122-148/40-67 3-95 General appearance: no acute distress, morbidly obese - Head Head exam: Absent: abrasion, hematoma - Eye Eye exam: Absent: periorbital swelling, laceration to eyelids - Neck Neck exam: Absent: tenderness - Respiratory Respiratory exam: Present: clear to auscultation bilaterally, other (Oxygen via nasal cannula). Absent: accessory muscle use, chest wall tenderness - Cardiovascular Cardiovascular exam: Present: regular rate and rhythm - GI/Abdominal GI/Abdominal exam: Present: normal bowel sounds, soft. Absent: distended, tenderness - Extremities Exam Extremities exam: Absent: edema - Neurological Exam Neurological exam: Present: alert, oriented X3 - Psychiatric Psychiatric exam: Present: normal affect, normal mood - Skin Skin exam: Present: warm, dry Result/EKG - Labs CBC & BMP: 10/20/16 04:54 10/20/16 04:54 Lab Results: I have reviewed the past 24 hour labs Labs: Laboratory Results - last 24 hr 10/19/16 10/19/16 10/19/16 11:19 11:19 11:19 WBC 8.5 RBC 3.56 L Hgb 11.2 L Hct 32.9 L MCV 92.4 MCH 32 MCHC 34.0 RDW 13.5 Plt Count 115 L MPV 11.1 Neut % (Auto) 75.5 H Lymph % (Auto) 15.5 L [place] % (Auto) 7.4 Eos % (Auto) 0.5 Baso % (Auto) 0.5 Neut # (Auto) 6.5 Lymph # (Auto) 1.3 L [place] # (Auto) 0.6 Eos # (Auto) 0.0 Baso # (Auto) 0.0 Immature Gran % 0.6 Nucleated RBC % 0.0 Immature Gran # 0.05 Nucleated RBCs # 0.00 Morphology Comment ESR Westergren 36 H Sodium 138 Potassium 4.9 Chloride 105 Carbon Dioxide 25 Anion Gap 12.9 BUN 43 H Creatinine 2.90 H GFR Calculation 20 BUN/Creatinine Ratio 14.00 Glucose 151 H POC Glucose Calculated Osmolality 288.7 Calcium 8.6 Magnesium Troponin I Triglycerides Cholesterol LDL Cholesterol VLDL Cholesterol HDL Cholesterol Heart Disease Risk Ratio Urine Color Urine Appearance Urine pH Ur Specific Fine Urine Protein Urine Glucose (UA) Urine Ketones Urine Blood Urine Nitrate Urine Bilirubin Urine Urobilinogen Urine Leukocytes Urine RBC Urine WBC Ur Squamous Epith Cells Ur Culture Indicated? 10/19/16 10/19/16 10/19/16 11:22 12:44 14:09 WBC RBC Hgb Hct MCV MCH MCHC RDW Plt Count MPV Neut % (Auto) Lymph % (Auto) [place] % (Auto) Eos % (Auto) Baso % (Auto) Neut # (Auto) Lymph # (Auto) [place] # (Auto) Eos # (Auto) Baso # (Auto) Immature Gran % Nucleated RBC % Immature Gran # Nucleated RBCs # Morphology Comment ESR Westergren Sodium Potassium Chloride Carbon Dioxide Anion Gap BUN Creatinine GFR Calculation BUN/Creatinine Ratio Glucose POC Glucose 188 H Calculated Osmolality Calcium Magnesium Troponin I 0.048 H 0.041 Triglycerides Cholesterol LDL Cholesterol VLDL Cholesterol HDL Cholesterol Heart Disease Risk Ratio Urine Color Urine Appearance Urine pH Ur Specific Fine Urine Protein Urine Glucose (UA) Urine Ketones Urine Blood Urine Nitrate Urine Bilirubin Urine Urobilinogen Urine Leukocytes Urine RBC Urine WBC Ur Squamous Epith Cells Ur Culture Indicated? 10/19/16 10/19/16 10/19/16 16:06 17:39 20:08 WBC RBC Hgb Hct MCV MCH MCHC RDW Plt Count MPV Neut % (Auto) Lymph % (Auto) [place] % (Auto) Eos % (Auto) Baso % (Auto) Neut # (Auto) Lymph # (Auto) [place] # (Auto) Eos # (Auto) Baso # (Auto) Immature Gran % Nucleated RBC % Immature Gran # Nucleated RBCs # Morphology Comment ESR Westergren Sodium Potassium Chloride Carbon Dioxide Anion Gap BUN Creatinine GFR Calculation BUN/Creatinine Ratio Glucose POC Glucose 199 H 163 H Calculated Osmolality Calcium Magnesium Troponin I 0.046 H Triglycerides Cholesterol LDL Cholesterol VLDL Cholesterol HDL Cholesterol Heart Disease Risk Ratio Urine Color Urine Appearance Urine pH Ur Specific Fine Urine Protein Urine Glucose (UA) Urine Ketones Urine Blood Urine Nitrate Urine Bilirubin Urine Urobilinogen Urine Leukocytes Urine RBC Urine WBC Ur Squamous Epith Cells Ur Culture Indicated? 10/19/16 10/20/16 10/20/16 Unknown 04:54 04:54 WBC 7.7 RBC 3.51 L Hgb 10.9 L Hct 32.9 L MCV 93.7 MCH 31 MCHC 33.1 RDW 13.7 Plt Count 117 L MPV 10.9 Neut % (Auto) 70.5 Lymph % (Auto) 21.1 L [place] % (Auto) 6.9 Eos % (Auto) 0.3 Baso % (Auto) 0.4 Neut # (Auto) 5.4 Lymph # (Auto) 1.6 [place] # (Auto) 0.5 Eos # (Auto) 0.0 Baso # (Auto) 0.0 Immature Gran % 0.8 Nucleated RBC % 0.0 Immature Gran # 0.06 Nucleated RBCs # 0.00 Morphology Comment ESR Westergren Sodium 139 Potassium 4.7 Chloride 107 Carbon Dioxide 24 Anion Gap 12.7 BUN 40 H Creatinine 2.70 H GFR Calculation 22 BUN/Creatinine Ratio 14.00 Glucose 95 POC Glucose Calculated Osmolality 286.5 Calcium 9.0 Magnesium 2.3 Troponin I Triglycerides Cholesterol LDL Cholesterol VLDL Cholesterol HDL Cholesterol Heart Disease Risk Ratio Urine Color Yellow Urine Appearance Clear Urine pH 5.0 Ur Specific Fine 1.009 Urine Protein Negative Urine Glucose (UA) Negative Urine Ketones Negative Urine Blood Negative Urine Nitrate Negative Urine Bilirubin Negative Urine Urobilinogen < 2.0 H Urine Leukocytes Negative Urine RBC <1 Urine WBC 1 Ur Squamous Epith Cells Occasional Ur Culture Indicated? Not indicated 10/20/16 10/20/16 04:54 07:44 WBC RBC Hgb Hct MCV MCH MCHC RDW Plt Count MPV Neut % (Auto) Lymph % (Auto) [place] % (Auto) Eos % (Auto) Baso % (Auto) Neut # (Auto) Lymph # (Auto) [place] # (Auto) Eos # (Auto) Baso # (Auto) Immature Gran % Nucleated RBC % Immature Gran # Nucleated RBCs # Morphology Comment ESR Westergren Sodium 139 Potassium 4.9 Chloride 106 Carbon Dioxide 24 Anion Gap 13.9 BUN 41 H Creatinine 2.80 H GFR Calculation 21 BUN/Creatinine Ratio 14.00 Glucose 95 POC Glucose 86 Calculated Osmolality 286.5 Calcium 9.0 Magnesium 2.3 Troponin I Triglycerides 73 Cholesterol 115 LDL Cholesterol 68.0 VLDL Cholesterol 14.6 HDL Cholesterol 47 Heart Disease Risk Ratio 2.45 Urine Color Urine Appearance Urine pH Ur Specific Fine Urine Protein Urine Glucose (UA) Urine Ketones Urine Blood Urine Nitrate Urine Bilirubin Urine Urobilinogen Urine Leukocytes Urine RBC Urine WBC Ur Squamous Epith Cells Ur Culture Indicated? - Diagnostic Findings Procedure: Chest x-ray: report reviewed by me, Ultrasound: report reviewed by me - EKG EKG results: interpreted by me EKG shows: sinus rhythm IJeaneth Shea, DO, personally performed the services described in this documentation, ascribed by Shama Crisostomo RN in my presence, and it is both accurate and complete [id number] .
[2016-10-20] MEDS: ENOXAPARIN 30 MG/0.3 ML SYRINGE SUBCUT SCH (13:48)
[2016-10-20] MEDS: INSULIN GLARGINE 100 UNIT/ML SUBCUT SCH (20:15)
[2016-10-20] MEDS: ATORVASTATIN 40 MG TABLET PO SCH (20:16)
[2016-10-20] MEDS: ACETAMINOPHEN 325 MG TABLET PO PRN (21:06)
[2016-10-21 05:20] LABS: Calcium 8.7 MG/DL (8.5-10.1); Magnesium 2.2 MG/DL (1.8-2.4); Osmolality,Calculated 291.8 MOS/KG (273-304); Potassium 4.4 MMOL/L (3.5-5.1)
[2016-10-21 07:31] VITALS: BP 144/66
[2016-10-21] MEDS: DOCUSATE SODIUM 100 MG CAPSULE PO SCH (08:10)
[2016-10-21] MEDS: PANTOPRAZOLE 40 MG TABLET PO SCH ×2 (08:10→08:11)
[2016-10-21] MEDS: ASPIRIN EC 81 MG TABLET PO SCH (08:10)
[2016-10-21] MEDS: INSULIN REGULAR 100 UNIT/ML SUBCUT SCH (08:11)
--- NOTE | 2016-10-21 08:12 | Discharge Summary ---
Hospital Course - Hospital Course Hospital Course: Ms. Velez was transferred from the [facility] ER after presenting with complaints of shortness of breath she was found to have new onset renal failure. She been started on Bactrim approximately 5 days prior to being seen in the emergency room this was on the background Indocin and lisinopril. Her creatinine had gone from a baseline of 1.5-1.7 up to over 3 at their facility. She was transferred here offensive Rx were held and renal ultrasound was unremarkable except for medical renal disease. Nephrology saw the patient and agreed with us. Her erythrocyte sedimentation rate was only 36. With hydration and cessation of offensive RX her creatinine was down to 2.0 on the date of discharge and she was dramatically better her creatinine dynamics are treated down significantly I think she has reached maximum benefit from hospitalization. We will discharge home and have her follow-up with me in 3 weeks with Chem-7. The patient was specifically counseled to hold her lisinopril because of her renal failure, avoid nonsteroidal anti-inflammatory agents and take Tylenol for her arthritic pain and keep up with her urine output daily. She is to also continue her blood pressure log and let us know if blood pressure greater than 140/90. - Time spent with patient Time with patient DS: Greater than 30 minutes (Examination, documentation, physical exam and discharge paperwork) Diagnosis - Discharge Diagnosis (1) Acute on chronic renal insufficiency Status: Acute (2) Arthritis Status: Chronic (3) Coronary artery disease Status: Chronic (4) Diabetes mellitus Status: Chronic (5) Dyspnea on exertion Status: Acute (6) History of atrial fibrillation Status: Chronic (7) Hypertension Status: Chronic (8) Obstructive sleep apnea Status: Chronic (9) Status post coronary artery stent placement Status: Chronic Specialty Discharge - Follow Up or Referrals Follow up with: Courtney Eric DO [Physician] - 2 Weeks (chem 7 and ECG ) Discharge Plan - Discharge Data Disposition: Disch To Home/Self Care Condition at Discharge: Stable Discharge Diet: advance to your usual diet Activity: resume usual activities as tolerated Hygiene: no restrictions, may shower Weight Bearing at Discharge: full weight bearing Driving: no restrictions Contact your physician if you experience:: fever over 101, Difficulty voiding, Redness or swelling, Nausea/Vomiting, Shortness of breath, Bleeding, pain uncontrolled by pain medications - Discharge Medications New Acetaminophen Tab [Tylenol Tab] 325 mg PO Q4H PRN tablet PRN Reason: fever, headache/body aches Continue Febuxostat [Uloric] 40 mg PO DAILY Insulin Glargine,Hum.rec.anlog [Toukyleo SoloStar] 35 unit SUBCUT BEDTIME Pantoprazole Tab [Protonix Tab] 40 mg PO DAILY Atorvastatin [Lipitor] 40 mg PO BEDTIME Aspirin [Ecotrin] 81 mg PO DAILY Loratadine [Allergy Relief] 10 mg PO DAILY Cranberry Conc/C/Bacill Coag [Azo Cranberry Tablet] 1 tablet PO DAILY NIFEdipine XL TAB [Procardia Xl] 60 mg PO DAILY Insulin Lispro [HumaLOG] 20 unit SUBCUT BID Ranolazine [Ranexa] 1,000 mg PO BID #6 tab.er.12h Discontinued Lisinopril 10 mg PO DAILY hydroCHLOROthiazide [Hydrochlorothiazide] 25 mg PO DAILY Indomethacin Cap [Indocin Cap] 50 mg PO TID PRN PRN Reason: Pain - Follow Up or Referral - Forms/Instructions Exam - Constitutional Vitals: Period Temp Pulse Resp BP Sys/Thacker Pulse Ox Last 24 Hr 98 F-100 F 59-68 16-20 126-146/46-69 90-95 General appearance: over weight - Head Head exam: Present: normal inspection - Eye Eye exam: Present: EOMI Pupils: Present: RIITKA - ENT ENT exam: Present: normal exam - Neck Neck exam: Present: normal inspection - Respiratory Respiratory exam: Present: clear to auscultation bilaterally - Cardiovascular Cardiovascular exam: Present: regular rate and rhythm (3/6 murmur of aortic sclerosis. She also has tricuspid regurg number) - GI/Abdominal GI/Abdominal exam: Present: normal bowel sounds - Extremities Exam Extremities exam: Present: normal inspection (She has no edema) - Back Exam Back exam: Present: normal inspection - Neurological Exam Neurological exam: Present: alert, oriented X3 - Psychiatric Psychiatric exam: Present: normal affect, normal mood - Skin Skin exam: Present: normal color, warm, dry Discharge Results Procedures and tests throughout hospitalization: Pending Orders 10/22/16 04:00 Basic Metabolic Panel IN AM Magnesium IN AM Labs on day of discharge: Labs from last 24 hours 10/21/16 10/21/16 10/20/16 07:00 03:55 20:04 Sodium 144 Potassium 4.4 Chloride 112 H Carbon Dioxide 26 Anion Gap 10.4 BUN 32 H Creatinine 2.00 H GFR Calculation 31 BUN/Creatinine Ratio 16.00 Glucose 78 POC Glucose 94 186 H Calculated Osmolality 291.8 Calcium 8.7 Magnesium 2.2 10/20/16 10/20/16 16:25 11:34 Sodium Potassium Chloride Carbon Dioxide Anion Gap BUN Creatinine GFR Calculation BUN/Creatinine Ratio Glucose POC Glucose 160 H 145 H Calculated Osmolality Calcium Magnesium DS: Provider Date of admission: 10/19/16 09:59 Primary care physician: VALERIO MENARD Attending physician on admission: Courtney Eric DO Consults: 10/19/16 10:50 Consult to Physician [CONS] Routine Comment: Consulting Provider: Faizan Boykin Consult to Specialist Group: Nephrology Person Notified: Gary Date Notified: 10/19/16 Time Notified: 13:20 Discharging clinician: Courtney Eric DO Expected date of discharge: 10/21/16
== END 2016-10-21 10:06 | disposition home or self-care (01) | DRG 684 ==
LOC: N.EDINP 09:59
PROVIDERS: ADMIT Internal Medicine Cardiovascular Disease; ATTEND Internal Medicine Cardiovascular Disease

== ENCOUNTER 2019-03-17 12:15 | Inpatient (IN) ==
[2019-03-17] MEDS ORDERED: DOCUSATE SODIUM 100 MG CAPSULE PO PRN (12:47)
[2019-03-17] MEDS ORDERED: MORPHINE 4 MG/1 ML VIAL IV PRN (12:47)
[2019-03-17] MEDS ORDERED: ACETAMINOPHEN 325 MG TABLET PO PRN (12:47)
[2019-03-17] MEDS ORDERED: MAGNESIUM SULF RIDER 4 GM in PREMIX 1 EACH IV PRN (12:47)
[2019-03-17] MEDS ORDERED: MAGNESIUM SULF RIDER 2 GM in PREMIX 1 EACH IV PRN (12:47)
[2019-03-17] MEDS ORDERED: ONDANSETRON 4 MG/2 ML VIAL IV PRN (12:47)
[2019-03-17] MEDS ORDERED: ZALEPLON 5 MG CAPSULE PO PRN (12:47)
[2019-03-17 13:24] LABS: Basophils # 0.1 10*3/uL (0.0-0.2); Basophils % 1.1 % (0.0-0.8); Eosinophils # 0.1 10*3/uL (0.0-0.87); Eosinophils % 2.3 % (0.00-10.9); Hematocrit 36.6 VOL% (35.7-47.0); Hemoglobin 12.1 GM/DL (12.0-16.0); Immature Granulocytes % 0.4 %; Lymphocytes # 1.2 10*3/uL (1.4-4.0); Lymphocytes % 21.3 % (21.3-54.2); Mean Corpuscular HGB Conc 33.1 GM/DL (32-36); Mean Corpuscular Volume 92.2 FL (87-102); Mean Platelet Volume 9.6 FL (9.6-12.0); Monocytes % 6.5 % (1.7-12.7); Neutrophils % 68.4 % (38.7-73.9); Platelet Count 140 T/CUMM (130-400); Red Blood Count 3.97 MC/CUMM (3.8-5.5); Red Cell Distribution Width 12.4 % (9.3-17.3); White Blood Count 5.5 T/CUMM (4-12)
[2019-03-17 13:25] LABS: Immature Granulocytes Absolute 0.02 #
[2019-03-17 13:54] LABS: Albumin 4.4 G/DL (3.4-5.0); Bilirubin,Total 0.4 MG/DL (0.2-1.0); Calcium 9.7 MG/DL (8.5-10.1); Osmolality,Calculated 315.7 MOS/KG (273-304); Total Protein 8.7 G/DL (6.4-8.3)
[2019-03-17] MEDS ORDERED: GLUCAGON 1 MG VIAL IM PRN (15:47)
[2019-03-17] MEDS ORDERED: DEXTROSE 10% 250 ML BAG IV PRN (15:47)
[2019-03-17 15:53] LABS: Apearance,Urine CLEAR (Clear); Bacteria,Urine Occasional /HPF (Few); Bilirubin,Urine Negative (Negative); Blood, Urine Negative (Negative); Glucose,Urine (UA) Negative (Negative); Hyaline Casts,Urine 9 /LPF (0-3); Ketones,Urine Negative (Negative); Nitrite,Urine Negative (Negative); Protein,Urine Negative; RBC,Urine <1 /HPF (0-4); Urine Color Straw (Yellow); Urine Specific Gravity 1.008 (1.001-1.035); Urine Urobilinogen < 2.0 EU/DL (0.2-1.0); WBC,Urine 15 /HPF (0-6)
[2019-03-17] MEDS: SODIUM CHLORIDE 0.45% 1,000 ML IV SCH (16:15)
[2019-03-17] MEDS: MINOXIDIL 2.5 MG TABLET PO SCH (21:00)
[2019-03-17] MEDS: hydrALAZINE 25 MG TABLET PO SCH (21:00)
[2019-03-17] MEDS: INSULIN LISPRO 100 UNIT/ML SUBCUT SCH (21:00)
[2019-03-17] MEDS: ATORVASTATIN 40 MG TABLET PO SCH (21:12)
[2019-03-17] MEDS: INSULIN GLARGINE 100 UNIT/ML SUBCUT SCH (21:12)
[2019-03-18] MEDS: SODIUM CHLORIDE 0.45% 1,000 ML IV SCH ×2 (05:15→21:28)
[2019-03-18 05:17] LABS: Albumin 3.7 G/DL (3.4-5.0); Bilirubin,Total 0.4 MG/DL (0.2-1.0); Calcium 9.1 MG/DL (8.5-10.1); Total Protein 7.1 G/DL (6.4-8.3)
[2019-03-18 05:23] LABS: Basophils % 0.9 % (0.0-0.8); Eosinophils # 0.1 10*3/uL (0.0-0.87); Eosinophils % 2.8 % (0.00-10.9); Hematocrit 30.1 VOL% (35.7-47.0); Hemoglobin 10.2 GM/DL (12.0-16.0); Immature Granulocytes % 0.4 %; Immature Granulocytes Absolute 0.02 #; Lymphocytes # 1.3 10*3/uL (1.4-4.0); Lymphocytes % 27.2 % (21.3-54.2); Mean Corpuscular HGB Conc 33.9 GM/DL (32-36); Mean Corpuscular Volume 90.4 FL (87-102); Mean Platelet Volume 10.3 FL (9.6-12.0); Monocytes % 10.9 % (1.7-12.7); Neutrophils % 57.8 % (38.7-73.9); Platelet Count 128 T/CUMM (130-400); Red Blood Count 3.33 MC/CUMM (3.8-5.5); Red Cell Distribution Width 12.3 % (9.3-17.3); White Blood Count 4.6 T/CUMM (4-12)
[2019-03-18] MEDS: PANTOPRAZOLE 40 MG TABLET PO SCH (09:30)
[2019-03-18] MEDS: LORATADINE 10 MG TABLET PO SCH (09:30)
[2019-03-18] MEDS: ASPIRIN EC 81 MG TABLET PO SCH (09:30)
[2019-03-18] MEDS: MINOXIDIL 2.5 MG TABLET PO SCH ×2 (09:30→22:05)
[2019-03-18] MEDS: INSULIN LISPRO 100 UNIT/ML SUBCUT SCH ×2 (09:53→22:05)
[2019-03-18] MEDS: hydrALAZINE 25 MG TABLET PO SCH ×2 (09:53→22:05)
[2019-03-18] MEDS: FEBUXOSTAT 80 MG TABLET PO SCH (11:51)
[2019-03-18] MEDS ORDERED: INFLUENZA VIRUS VACCINE 0.5 ML SYRINGE IM ONE (13:25)
[2019-03-18] MEDS: ATORVASTATIN 40 MG TABLET PO SCH (22:08)
[2019-03-18] MEDS: INSULIN GLARGINE 100 UNIT/ML SUBCUT SCH (22:09)
[2019-03-19] MEDS: cefTRIAXone 1,000 MG in SYRINGE 1 EACH IV SCH ×2 (00:42→21:47)
[2019-03-19 04:36] LABS: Basophils % 0.8 % (0.0-0.8); Eosinophils # 0.1 10*3/uL (0.0-0.87); Eosinophils % 2.5 % (0.00-10.9); Hematocrit 27.9 VOL% (35.7-47.0); Hemoglobin 9.2 GM/DL (12.0-16.0); Immature Granulocytes % 0.3 %; Immature Granulocytes Absolute 0.01 #; Lymphocytes # 1.3 10*3/uL (1.4-4.0); Lymphocytes % 31.8 % (21.3-54.2); Mean Corpuscular Volume 92.7 FL (87-102); Mean Platelet Volume 10.3 FL (9.6-12.0); Monocytes % 11.6 % (1.7-12.7); Platelet Count 114 T/CUMM (130-400); Red Blood Count 3.01 MC/CUMM (3.8-5.5); Red Cell Distribution Width 12.5 % (9.3-17.3)
[2019-03-19 05:00] LABS: Calcium 8.5 MG/DL (8.5-10.1); Osmolality,Calculated 311.1 MOS/KG (273-304)
[2019-03-19] MEDS: SODIUM CHLORIDE 0.45% 1,000 ML IV SCH ×3 (06:10→20:40)
[2019-03-19] MEDS: ASPIRIN EC 81 MG TABLET PO SCH (09:05)
[2019-03-19] MEDS: FEBUXOSTAT 80 MG TABLET PO SCH (09:05)
[2019-03-19] MEDS: PANTOPRAZOLE 40 MG TABLET PO SCH (09:05)
[2019-03-19] MEDS: LORATADINE 10 MG TABLET PO SCH (09:05)
[2019-03-19] MEDS: INSULIN LISPRO 100 UNIT/ML SUBCUT SCH ×2 (09:06→20:48)
[2019-03-19] MEDS: hydrALAZINE 25 MG TABLET PO SCH ×2 (09:10→20:40)
[2019-03-19] MEDS ORDERED: diphenhydrAMINE CAP 25 MG CAPSULE PO PRN (12:45)
[2019-03-19] MEDS ORDERED: MAGNESIUM HYDROXIDE SUSP 30 ML UDCUP PO PRN (12:46)
[2019-03-19] MEDS: ATORVASTATIN 40 MG TABLET PO SCH (20:40)
[2019-03-19] MEDS: INSULIN GLARGINE 100 UNIT/ML SUBCUT SCH (20:40)
[2019-03-20 03:37] LABS: Basophils % 0.9 % (0.0-0.8); Eosinophils # 0.1 10*3/uL (0.0-0.87); Eosinophils % 3.3 % (0.00-10.9); Hematocrit 28.8 VOL% (35.7-47.0); Hemoglobin 9.3 GM/DL (12.0-16.0); Immature Granulocytes % 0.3 %; Immature Granulocytes Absolute 0.01 #; Lymphocytes # 0.9 10*3/uL (1.4-4.0); Lymphocytes % 27.3 % (21.3-54.2); Mean Corpuscular HGB Conc 32.3 GM/DL (32-36); Mean Corpuscular Volume 93.2 FL (87-102); Mean Platelet Volume 9.8 FL (9.6-12.0); Monocytes % 12.3 % (1.7-12.7); Neutrophils % 55.9 % (38.7-73.9); Platelet Count 103 T/CUMM (130-400); Red Blood Count 3.09 MC/CUMM (3.8-5.5); Red Cell Distribution Width 12.6 % (9.3-17.3); White Blood Count 3.3 T/CUMM (4-12)
[2019-03-20 03:50] LABS: Calcium 8.9 MG/DL (8.5-10.1); Osmolality,Calculated 314.4 MOS/KG (273-304)
[2019-03-20] MEDS: FEBUXOSTAT 80 MG TABLET PO SCH (08:55)
[2019-03-20] MEDS: PANTOPRAZOLE 40 MG TABLET PO SCH (08:56)
[2019-03-20] MEDS: LORATADINE 10 MG TABLET PO SCH (08:56)
[2019-03-20] MEDS: ASPIRIN EC 81 MG TABLET PO SCH (08:56)
[2019-03-20] MEDS: INSULIN LISPRO 100 UNIT/ML SUBCUT SCH ×2 (09:00→21:07)
[2019-03-20] MEDS: hydrALAZINE 25 MG TABLET PO SCH ×2 (09:00→21:34)
[2019-03-20] MEDS: SODIUM CHLORIDE 0.45% 1,000 ML IV SCH (10:26)
[2019-03-20] MEDS ORDERED: LEVOFLOXACIN INJ 500 MG in PREMIX 1 EACH IV ONE (21:00)
[2019-03-20] MEDS: ATORVASTATIN 40 MG TABLET PO SCH (21:34)
[2019-03-20] MEDS: INSULIN GLARGINE 100 UNIT/ML SUBCUT SCH (21:34)
[2019-03-21] MEDS: SODIUM CHLORIDE 0.45% 1,000 ML IV SCH (02:48)
[2019-03-21 05:01] LABS: Eosinophils # 0.1 10*3/uL (0.0-0.87); Eosinophils % 3.6 % (0.00-10.9); Hematocrit 28.8 VOL% (35.7-47.0); Hemoglobin 9.5 GM/DL (12.0-16.0); Immature Granulocytes % 0.6 %; Immature Granulocytes Absolute 0.02 #; Lymphocytes # 0.8 10*3/uL (1.4-4.0); Lymphocytes % 26.3 % (21.3-54.2); Mean Corpuscular Volume 92.6 FL (87-102); Mean Platelet Volume 10.3 FL (9.6-12.0); Neutrophils % 57.5 % (38.7-73.9); Platelet Count 106 T/CUMM (130-400); Red Blood Count 3.11 MC/CUMM (3.8-5.5); Red Cell Distribution Width 12.4 % (9.3-17.3); White Blood Count 3.1 T/CUMM (4-12)
[2019-03-21 08:36] VITALS: BP 110/44
[2019-03-21] MEDS: hydrALAZINE 25 MG TABLET PO SCH (09:55)
[2019-03-21] MEDS: INSULIN LISPRO 100 UNIT/ML SUBCUT SCH (09:55)
[2019-03-21] MEDS: ASPIRIN EC 81 MG TABLET PO SCH (09:55)
[2019-03-21] MEDS: LORATADINE 10 MG TABLET PO SCH (09:55)
[2019-03-21] MEDS: FEBUXOSTAT 80 MG TABLET PO SCH (09:56)
[2019-03-21] MEDS: PANTOPRAZOLE 40 MG TABLET PO SCH (09:56)
[2019-03-21] MEDS ORDERED: LEVOFLOXACIN INJ 250 MG in PREMIX 1 EACH IV SCH (21:00)
== END 2019-03-21 10:36 | disposition home or self-care (01) | DRG 683 ==
LOC: N.2W → N.TELEN 03-18 14:57
PROVIDERS: ADMIT Internal Medicine Cardiovascular Disease; ATTEND Internal Medicine Cardiovascular Disease